=== PATIENT | female | born 1940 | race Two or more races ===

== ENCOUNTER 2018-06-12 14:38 | Emergency (ER) | payer OTHER ==
[~2018-06-12] VITALS: Ht 157.5 cm; Wt 76.2 kg
[~2018-06-12 14:38] MED LIST: ATENOLOL50 MG; TAPAZOLE10 MG
[2018-06-12] MEDS ORDERED: HYZAAR 100-12.1 EACH PO (14:49)
[2018-06-12] MEDS ORDERED: NORVASC2.5 M1 (14:49)
[2018-06-12] MEDS ORDERED: SIMVASTATIN10 MG (14:50)
== END 2018-06-12 20:59 | disposition home or self-care (01) ==
LOC: ER 14:38
DX: K29.60 Other gastritis without bleeding (principal)

== ENCOUNTER 2018-12-04 07:30 | Outpatient (CLI) | payer OTHER ==
[~2018-12-04 07:30] MED LIST changes: +HYZAAR 100-12.1 EACH PO; +NORVASC2.5 M1; +SIMVASTATIN10 MG
== END 2018-12-04 07:37 | disposition home or self-care (01) ==
LOC: SONOGRAMA 07:30
DX: E04.2 Nontoxic multinodular goiter (principal)

== ENCOUNTER 2019-04-30 07:33 | Outpatient (CLI) | payer OTHER | END 2019-04-30 07:35 | disposition home or self-care (01) | LOC: SONOGRAMA 07:33 | DX: E04.1 Nontoxic single thyroid nodule (principal) ==

== ENCOUNTER 2021-08-19 15:46 | Emergency (ER) | payer OTHER ==
[~2021-08-19] VITALS: Ht 170.2 cm; Wt 72.6 kg
[2021-08-19] MEDS ORDERED: AMLODIPINE BESYL5 MG PO (15:58)
[2021-08-19] MEDS ORDERED: PANTOPRAZOLE SO40 MG PO (15:58)
[2021-08-19] MEDS ORDERED: LOSARTAN POTAS100 MG PO (15:58)
[2021-08-19] MEDS ORDERED: TAPAZOLE5 MG PO (15:59)
[2021-08-19] MEDS ORDERED: CIPRO500 MG PO (22:47)
[2021-08-19] MEDS ORDERED: METRONIDAZOLE500 MG PO (22:47)
== END 2021-08-19 22:57 | disposition home or self-care (01) ==
LOC: ER 15:46
DX: K52.89 Other specified noninfective gastroenteritis and colitis (principal); I10 Essential (primary) hypertension; Z88.0 Allergy status to penicillin; K57.30 Diverticulosis of large intestine without perforation or abscess without bleeding

== ENCOUNTER 2022-01-22 22:42 | Emergency (ER) | payer OTHER ==
[~2022-01-22] VITALS: Ht 170.2 cm; Wt 70.3 kg
[~2022-01-22 22:42] MED LIST changes: +AMLODIPINE BESYL5 MG PO; +CIPRO500 MG PO; +LOSARTAN POTAS100 MG PO; +METRONIDAZOLE500 MG PO; +PANTOPRAZOLE SO40 MG PO; +TAPAZOLE5 MG PO
[2022-01-22] MEDS ORDERED: ATENOLOL25 MG PO (23:20)
[2022-01-23] MEDS ORDERED: CIPRO500 MG PO (11:02)
[2022-01-23] MEDS ORDERED: PEPCID AC20 MG PO (11:02)
[2022-01-23] MEDS ORDERED: LEVSIN/SL0.125 MG PO (11:02)
[2022-01-23] MEDS ORDERED: METRONIDAZOLE500 MG PO (11:02)
[2022-01-23] MEDS ORDERED: INTESTINEX680 M1 PO (11:02)
== END 2022-01-23 11:17 ==
LOC: ER 22:42
DX: K57.32 Diverticulitis of large intestine without perforation or abscess without bleeding (principal); Z88.0 Allergy status to penicillin; Z88.2 Allergy status to sulfonamides

== ENCOUNTER 2022-05-11 15:43 | Emergency (ER) | payer OTHER ==
[~2022-05-11] VITALS: Ht 170.2 cm; Wt 71.7 kg
[~2022-05-11 15:43] MED LIST changes: +ATENOLOL25 MG PO; +INTESTINEX680 M1 PO; +LEVSIN/SL0.125 MG PO; +PEPCID AC20 MG PO
== END 2022-05-12 04:06 | disposition home or self-care (01) ==
LOC: ER 15:43
DX: K29.70 Gastritis, unspecified, without bleeding (principal); R11.10 Vomiting, unspecified; Z88.2 Allergy status to sulfonamides; Z88.0 Allergy status to penicillin; K57.30 Diverticulosis of large intestine without perforation or abscess without bleeding

== ENCOUNTER 2022-05-17 15:40 | Emergency (ER) | payer OTHER ==
[~2022-05-17] VITALS: Ht 167.6 cm; Wt 69.9 kg
[2022-05-17] MEDS ORDERED: NORVASC5 MG PO (15:54)
== END 2022-05-17 18:41 | disposition home or self-care (01) ==
LOC: ER 15:40
DX: R00.1 Bradycardia, unspecified (principal); Z88.2 Allergy status to sulfonamides; Z88.0 Allergy status to penicillin; I10 Essential (primary) hypertension; E03.9 Hypothyroidism, unspecified

== ENCOUNTER 2025-02-16 18:18 | Emergency (ER) | payer OTHER ==
[~2025-02-16] VITALS: Ht 170.2 cm; Wt 69.4 kg
[~2025-02-16 18:18] MED LIST changes: +NORVASC5 MG PO
[2025-02-16 20:08] LABS: BASO % 0.2 % (0.1-1.2); EOS # 0.01 (0.04-0.54); EOS % 0.2 % (0.7-7.0); LYMPH # 1.33 (1.18-3.74); LYMPH % 23.5 % (19.3-53.1); MEAN PLATELET VOLUME 8.10 fl (9.4-12.4); MONO # 0.53 (0.24-0.82); MONO % 9.3 % (4.7-12.5); NEUT # 3.76 (1.56-6.13); NEUT % 66.3 % (34.0-71.1); RED CELL DISTRIBUTION WIDTH 12.5 % (11.6-14.4)
[2025-02-16 20:29] LABS: INR 1.07
[2025-02-16 20:35] LABS: ALT/SGPT 19.0 U/L (12-78); AST/SGOT 19.0 U/L (15-37); BILIRUBIN TOTAL 0.34 mg/dL (0.3-1.2); BUN CREA RATIO 38.0 (7.0-25.0); CREATININE SERUM 0.64 mg/dL (0.55-1.02); GFR 87.98; GLOBULINA 4.3 G/DL (2.4-3.5); GLUCOSE FASTING 113.0 mg/dL (65-100); OSMOLALITY SERUM 262.0 MOSM/KG (275-295)
[2025-02-16 22:14] LABS: URINE APPEARANCE Clear; URINE BILIRRUBIN Negative (NEGATIVE); URINE BLOOD Negative; URINE COLOR Yellow; URINE GLUCOSE Negative (NEGATIVE); URINE KETONE Negative (NEGATIVE); URINE LEUKOCYTE Negative; URINE NITRATE Negative; URINE PROTEIN Negative (NEGATIVE); URINE UROBILINOGEN 0.2 E.U./dl
[2025-02-16 22:15] LABS: URINE BACTERIA 34.7 uL (0.0-1933); URINE EPITHELIAL CELLS 2.9 uL (0.0-38.8); URINE RBC 4.6 uL (0.0-20.8); URINE WBC 2.7 uL (0.0-23.2)
[2025-02-16 22:18] LABS: URINE CAST 0.14 uL (0.0-1.40)
[2025-02-17] MEDS ORDERED: MELOXICAM15 MG PO (03:37)
== END 2025-02-17 03:49 ==
LOC: ER 18:18
PROVIDERS: Physician Assistant Medical
DX: S30.0XXA Contusion of lower back and pelvis, initial encounter (principal); S00.93XA Contusion of unspecified part of head, initial encounter; W18.39XA Other fall on same level, initial encounter; Y93.89 Activity, other specified; Y92.018 Other place in single-family (private) house as the place of occurrence of the external cause; Y99.9 Unspecified external cause status; M51.369 Other intervertebral disc degeneration, lumbar region without mention of lumbar back pain or lower extremity pain; I10 Essential (primary) hypertension; Z88.0 Allergy status to penicillin; Z88.8 Allergy status to other drugs, medicaments and biological substances